=== PATIENT | female | born 1940 | race Caucasian/White ===

== ENCOUNTER 2017-06-02 09:07 | Day surgery (SDC) | payer MEDICARE ==
--- NOTE | 2017-06-02 06:30 | History and Physical Report ---
DATE: 06/02/17. CHIEF COMPLAINT AND HISTORY OF CHIEF COMPLAINT: This patient presents with a multiple-level fusion of the lumbar and thoracic spine for rotoscoliosis. The pain pattern is a combination of back and leg; the leg is the primary component. Due to the failure of all therapies, she presents today for an implanted spinal catheter infusion trial with hydromorphone. PAST MEDICAL HISTORY: Hypertension. PAST SURGICAL HISTORY: Multiple lumbar and thoracic fusions. MEDICATIONS ON ADMISSION: To be provided. ALLERGIES: Biaxin and Compazine. SOCIAL HISTORY: Caffeine. FAMILY HISTORY: Diabetes, coronary artery disease, hypertension, cancer. REVIEW OF SYSTEMS: The patient is appropriate and in no acute distress. The remainder of the systems review shows glasses, stable seizure disorder, blood pressure problems, gastritis, degenerative arthritis. PHYSICAL EXAMINATION: General: Height is 5 feet, 3 inches. Weight is 160 pounds. Vital Signs: Not available. HEENT: Within normal limits. Lungs: Clear. Heart: Regular rate and rhythm. Abdomen: Nontender. Musculoskeletal: Examination of the musculoskeletal system shows diffuse tenderness throughout the thoracic and lumbar spine adjacent to an extensive laminectomy scar. Range of motion is limited. The sensory mai are intact. Neurologic: Cranial nerves are intact. IMPRESSION: 1. POSTLUMBAR LAMINECTOMY SYNDROME, ICD-10 CODE M96.1. 2. LUMBAR RADICULITIS, ICD-10 CODE M54.16 AND M54.17. PLAN: The patient is here for an implanted spinal infusion trial with hydromorphone. The patient understands the implanted catheter technique, the risks, and the potential side effects including spinal cord injury, nerve root injury, paralysis, and spinal headache. Because of the extensive hardware, it is unlikely that a blood patch will be performed or even could be performed. The risk of spinal headache is significant. Conservative therapy will be used. She will be kept overnight in an attempt to help minimize this incident. All of her questions have been answered and reviewed. JASON WHITEHEAD D.O. Date & Time JOB NUMBER: [id number] cc: Neda Brooke
[~2017-06-02 09:07] MED LIST: ACETAMINOPHEN 1,000 MG/100 ML BTL IV ONE; CEFAZOLIN 2 Gram 2 GM/50 ML BAG IVPB ONE; FAMOTIDINE 20MG TABLET PO ONE; HYDROMORPHONE PF 2MG/ML AMP 0.004 MG in 0.9 % SODIUM CHLORIDE 10ML VIA 0.998 ML IV ONE; HYDROMORPHONE PF 2MG/ML AMP 2 MG in 0.9 % SODIUM CHLORIDE 500ML 499 ML IV ONE; MECLIZINE 25 MG TABLET PO ONE; METOCLOPRAMIDE 10 MG TABLET PO ONE
[2017-06-02] MEDS ORDERED: AL HYDROX/MAG HYDROX 30ML UD PO PRN (13:19)
[2017-06-02] MEDS ORDERED: HYDROCODONE/APAP 7.5/325MG TABLET PO PRN ×2 (13:19)
[2017-06-02] MEDS ORDERED: ACETAMINOPHEN 325 MG TAB PO PRN ×2 (13:19)
[2017-06-02] MEDS ORDERED: OXYCODONE/APAP 10MG-325MG TABLET PO PRN (13:19)
[2017-06-02] MEDS ORDERED: HYDROMORPHONE HCL 2 MG/ML VIAL IM PRN (13:19)
[2017-06-02] MEDS ORDERED: METOCLOPRAMIDE HCL 10 MG/2 ML VIAL IVP PRN (13:19)
[2017-06-02] MEDS ORDERED: METOCLOPRAMIDE 10 MG TABLET PO PRN (13:19)
[2017-06-02] MEDS ORDERED: DIPHENHYDRAMINE HCL IV 50 MG/ML VIAL IVP PRN ×2 (13:19)
[2017-06-02] MEDS ORDERED: NALOXONE 0.4 MG/1 ML VIAL IVP PRN (13:19)
[2017-06-02] MEDS ORDERED: SENNOSIDES/DOCUSATE SODIUM UD CAPSULE PO PRN ×2 (13:19)
[2017-06-02] MEDS ORDERED: DIPHENHYDRAMINE HCL 25 MG CAPSULE PO PRN ×2 (13:19)
[2017-06-02] MEDS ORDERED: TEMAZEPAM 15 MG CAPSULE PO PRN ×2 (13:19)
[2017-06-02] MEDS ORDERED: HYDROMORPHONE HCL 1 MG/ML CPJ IM PRN (13:19)
[2017-06-02] MEDS ORDERED: PANTOPRAZOLE SODIUM 40 MG TABLET PO PRN (13:21)
[2017-06-02] MEDS ORDERED: FUROSEMIDE 20 MG TABLET PO PRN (13:22)
[2017-06-02] MEDS ORDERED: BUPIVACAINE 0.5% W/EPI MPF 30 ML VIAL IVP ONE (13:54)
[2017-06-02] MEDS ORDERED: CEFAZOLIN 1G VIAL IM ONE (13:54)
[2017-06-02] MEDS ORDERED: LIDOCAINE 1% W/EPI 1:200,000 MPF 30ML SQ ONE (13:54)
[2017-06-02] MEDS ORDERED: *PACU ONLY* KETAMINE HCL 10 MG/ML (20ML) VIAL IV ONE (16:00)
[2017-06-02] MEDS ORDERED: PROPOFOL 10 MG/ML VIAL IV ONE (16:00)
[2017-06-02] MEDS ORDERED: MIDAZOLAM HCL 2MG/2ML VIAL IV ONE (16:00)
[2017-06-02] MEDS ORDERED: LIDOCAINE 2% MDV (20MG/ML) 20ML VIAL IV ONE (16:00)
[2017-06-02] MEDS ORDERED: EPHEDRINE SULFATE 50 MG/ML ML IV ONE (16:00)
[2017-06-02] MEDS: RINGERS SOLUTION,LACTATED 1,000 ML IV SCH ×2 (16:21→22:14)
[2017-06-02] MEDS: OXYCODONE/APAP 10MG-325MG TABLET PO PRN ×2 (16:21→20:21)
--- NOTE | 2017-06-02 16:21 | Operative Note - Ferro ---
DATE OF SURGERY: 06/02/17 PREOPERATIVE DIAGNOSES: 1. POST LUMBAR LAMINECTOMY SYNDROME, ICD-10 CODE = M96.1 2. LUMBAR RADICULITIS, ICD-10 CODE = M54.16 AND M54.17. OPERATION: 1. FLUOROSCOPICALLY-GUIDED ACCESS SPINAL SPACE AT L3/4. PLACEMENT OF THIN- WALLED SPINAL CATHETER T12. 2. DIAGNOSTIC MYELOGRAPHY WITH RADIOLOGIC SUPERVISION AND INTERPRETATION. 3. SPINAL OPIOID BOLUS HYDROMORPHONE 0.002 MG, SPINAL SPACE. 4. INCISION, SUBCUTANEOUS DISSECTION, AND ANCHORING OF SPINAL CATHETER TO SUPRASPINOUS FASCIA USING ANCHORING DEVICE AND NONABSORBABLE SUTURE. 5. INCISION, SUBCUTANEOUS DISSECTION, AND CREATION OF SUBCUTANEOUS POUCH AT RIGHT POSTERIOR GLUTEAL MARGIN ULTIMATELY SITE FOR PUMP PICKED BY PATIENT. 6. TUNNELING BETWEEN MIDLINE POUCH TO POSTERIOR GLUTEAL POUCH BY WAY OF TUNNELING TOOL EXTENDING SPINAL CATHETER INTO POSTERIOR POUCH. 7. RESECT INTERFACE SPINAL CATHETER WITH SECOND CATHETER COMPONENT BY WAY OF CONNECTOR. 8. TUNNELING OF SECONDARY CATHETER COMPONENT SUPERIOR 6 CM EXITING SKIN. 9. INTERFACE EXTERNAL CATHETER TO EXTERNAL PUMP SET TO DELIVER HYDROMORPHONE AT 0.04 MG A DAY. 10. NO EPIDURAL BLOOD PATCH BECAUSE OF EXTENSIVE FUSION AND SCAR TISSUE. APPROPRIATE DRESSINGS PLACED SECURING CATHETER AND ALL CONNECTIONS UNDER STERILE DRESSING. SURGEON: JASON WHITEHEAD D.O. ANESTHESIA: LOCAL SEDATION. ANESTHESIA PROVIDER: LEANDRO CHAVEZ CRNA INDICATION: This patient presents with a history spinal infusion. Diagnostics show pedicle screw and heron fusion from T8 through L5/S1 with bilateral fusion of SI joints. Due to the failure of all therapies, she is here for an intraspinal opioid infusion trial to determine if the implantation of a permanent system can be of any value in pain control. PROCEDURE: Intravenous line, vital sign monitoring, IV sedation, prepped, draped, sterile technique. Under imaging, the spinal interspace in the middle of the fusion, a decompression laminectomy at L3/4 was marked. No visualization of acceptable interspaces in the area of the fusion from T8 down. Using slow and meticulous advancing of the needle, using an angle approaching the spinal space as low as possible, tip of the needle at the spinous process, AP and lateral imaging was used until the needle was placed into what appeared to be the spinal space. No CSF was noted. With needle placement appropriate for the spinal space despite no CSF, the catheter was advanced and positioned under imaging easily consistent with spinal placement to T12. Contrast 0.5 mL was injected through the catheter. Myelogram characteristics noted confirming spinal placement. The needle was removed and incision made, and subcutaneous dissection was then conducted to anchor the catheter the supraspinous fascia. A pursestring suture had been placed around the catheter to limit any CSF loss. A bolus of 1 mL Hydromorphone 0.002 mg was given into the spinal space as a bolus. Once the catheter was anchored to the supraspinous fascia using an anchoring device and nonabsorbable suture, the catheter was clamped to limit any further CSF. At the right posterior gluteal margin, site picked by the patient, skin infiltrated, incision made, and subcutaneous dissection was conducted to form a pouch of suitable size and depth ultimately for the placement of the pump itself. A tunneling tool was used to carry the spinal catheter into the posterior pouch and then the spinal catheter was resected and interfaced with the second catheter component by way of a connector. The secondary catheter component was then tunneled superior 6 cm from this pouch exiting the skin. The externalized catheter was then interfaced with an external pump set to deliver Hydromorphone at 0.04 mg a day. The catheter interface was then placed subcutaneously in the posterior gluteal pouch. The midline incision was closed with Vicryl, fascial, and subcuticular. Dermabond closure. The posterior pouch was then closed with nylon. Dressings were placed securing the catheter and all connections under sterile dressing. Because of the extensive spinal surgery, no epidural blood patch will be attempted. She was transported to the Recovery Room. At no point did she demonstrate fasciculations and no point during needle placement did she show any indications of trouble or difficulty. Although sedated, she was responsive sufficiently to indicate pain. She did not. The procedure went without difficulty. In the Recovery Room, she seemed appropriate. We will monitor. She will stay flat, slowly elevated after four hours, be kept overnight for observation, and in the morning be discharged. DISCHARGE INSTRUCTIONS: 1. The sites will remain clean and dry. No showering or bathing in any way that might disrupt dressings. If it happens, contact the clinic. 2. Standard medications including Levaquin, the antibiotic, 500 mg once a day for 14 days. 3. Spinal opioid side-effects including respiratory depression, nausea, vomiting , constipation, urinary retention, light headedness or rash have all been discussed and reviewed. If any of these should happen, she should contact the clinic immediately or go to a local Emergency Room. Her and her are both instructed on how to turn off the external infusion device. All other instructions provided, numbers to contact, problems given. She will be discharged in the morning. cc: Dr. Washington JOB NUMBER: [id number] MTDD
[2017-06-02] MEDS: CEFAZOLIN 2 Gram 2 GM/50 ML BAG IVPB SCH (19:26)
[2017-06-02] MEDS ORDERED: GABAPENTIN 300 MG CAPSULE PO SCH (22:00)
[2017-06-02] MEDS ORDERED: FENTANYL 50MCG PATCH TD SCH (22:00)
[2017-06-02] MEDS ORDERED: ATENOLOL 50 MG TABLET PO SCH (22:00)
[2017-06-02] MEDS ORDERED: SIMVASTATIN 20 MG TABLET PO SCH (22:00)
[2017-06-02] MEDS ORDERED: EZETIMIBE 10 MG TABLET PO SCH (22:00)
[2017-06-02] MEDS ORDERED: TRAZODONE 50 MG TABLET PO SCH (22:00)
[2017-06-02] MEDS: HYDRALAZINE HCL 25 MG TABLET PO SCH (22:08)
[2017-06-03] MEDS: OXYCODONE/APAP 10MG-325MG TABLET PO PRN ×3 (00:58→09:26)
[2017-06-03] MEDS: RINGERS SOLUTION,LACTATED 1,000 ML IV SCH ×2 (01:00→05:29)
[2017-06-03] MEDS: CEFAZOLIN 2 Gram 2 GM/50 ML BAG IVPB SCH ×2 (02:30→10:12)
[2017-06-03] MEDS: HYDRALAZINE HCL 25 MG TABLET PO SCH (09:25)
[2017-06-03] MEDS ORDERED: LOSARTAN POTASSIUM 100 MG TABLET PO SCH (10:00)
[2017-06-03] MEDS ORDERED: AMIODARONE HCL 200 MG TABLET PO SCH (10:00)
[2017-06-03] MEDS ORDERED: FUROSEMIDE 20 MG TABLET PO SCH (10:00)
[2017-06-03] MEDS ORDERED: POTASSIUM CHLORIDE 10 MEQ TAB PO SCH (10:00)
[2017-06-03] MEDS ORDERED: DILTIAZEM HCL 120 MG ER CAPSULE PO SCH (10:00)
--- NOTE | 2017-06-03 13:25 | RADIOLOGY REPORT ---
EXAM: AP THORACOLUMBAR SPINE HISTORY: PAIN PUMP TRIAL. TECHNIQUE: AP view of the thoracolumbar spine was obtained. Comparison: None. FINDINGS: Posterior fusion rods are identified extending from the T10 level to the iliac bones. Pain pump catheter tubing is difficult to delineate although the radiodense tip may be at the inferior T12 level. IMPRESSION: POSTOPERATIVE CHANGE OF THE THORACOLUMBAR SPINE. THE PAIN PUMP CATHETER TIP APPEARS TO OVERLIE THE INFERIOR T12 LEVEL. JOB NUMBER: [id number] [facility]
== END 2017-06-03 11:30 | disposition home or self-care (01) ==
LOC: SUR 09:07 → MEDSURG 13:37 → SUR 06-03 11:30
PROVIDERS: ATTEND Pain Medicine Interventional Pain Medicine
DX: M96.1 Postlaminectomy syndrome, not elsewhere classified (principal); M54.16 Radiculopathy, lumbar region; M54.17 Radiculopathy, lumbosacral region; I48.2 Chronic atrial fibrillation; Z79.01 Long term (current) use of anticoagulants; I10 Essential (primary) hypertension; E78.00 Pure hypercholesterolemia, unspecified
CPT/HCPCS: 62350; 00630; 72020; 94760; Q9967; J3490; J0690 ×2; J1170; J7040; J7120

== ENCOUNTER 2017-06-16 08:58 | Day surgery (SDC) | payer MEDICARE ==
--- NOTE | 2017-06-16 07:05 | History and Physical Report ---
DATE: 06/16/2107. CHIEF COMPLAINT AND HISTORY OF CHIEF COMPLAINT: This is a patient with a history of multiple spine surgeries. She has an implanted spinal catheter infusion trial with hydromorphone ongoing. She has had greater than 75 percent pain control throughout this period of time. Due to the failure of all of the other therapies and the success of the trial, the patient presents today for implantation of a permanent system. She is from the state [facility] and is here for the trial. Once this has been implanted she will return to [place]. PAST MEDICAL HISTORY: Hypertension. PAST SURGICAL HISTORY: Multiple surgeries on the lumbar and thoracic spine. MEDICATIONS ON ADMISSION: To be provided. ALLERGIES: Biaxin, Compazine. SOCIAL HISTORY: Caffeine. FAMILY HISTORY: Diabetes, coronary artery disease, hypertension, cancer. REVIEW OF SYSTEMS: The patient seems appropriate and in no acute distress. The remainder of the systems review shows stable seizure disorder, blood pressure problems, gastritis, degenerative arthritis. PHYSICAL EXAMINATION: General: Height is 5 feet, 3 inches. Weight is 160 pounds. Vital Signs: None available. HEENT: Within normal limits. Lungs: Clear. Heart: Regular rate and rhythm. Abdomen: Nontender. Musculoskeletal: Examination of the musculoskeletal system shows diffuse tenderness throughout the lumbar spine. The dressings for the implanted catheter trial are intact. The externalized catheter is interfaced to the external pump and is intact. The underlying pain pattern is back, hip, and leg. Sensory ami are intact. Neurologic: Cranial nerves are intact. IMPRESSION: 1. POSTLUMBAR LAMINECTOMY SYNDROME, ICD-10 CODE M96.1. 2. LUMBAR RADICULITIS, ICD-10 CODE M54.16 AND M54.17. 3. IMPLANTED SPINAL CATHETER INFUSION TRIAL WITH HYDROMORPHONE. PLAN: At this point the patient is doing quite well and wants an implant. The potential risks, side effects, and complications including spinal cord trauma and nerve root injury have been discussed and reviewed. A spinal headache is possible. Dural blood patch may be performed. The procedure will be considered outpatient. An overnight stay will be evaluated. JASON WHITEHEAD D.O. Date & Time JOB NUMBER: [id number] cc: Neda Brooke
[~2017-06-16 08:58] MED LIST changes: +HYDROMORPHONE HCL 0.016 GM in 0.9 % SODIUM CHLORIDE 10ML VIA 20 ML IV ONE; +HYDROMORPHONE HCL/PF 0.002 MG in 0.9 % SODIUM CHLORIDE 10ML VIA 0.998 ML IVP ONE; -HYDROMORPHONE PF 2MG/ML AMP 0.004 MG in 0.9 % SODIUM CHLORIDE 10ML VIA 0.998 ML IV ONE; -HYDROMORPHONE PF 2MG/ML AMP 2 MG in 0.9 % SODIUM CHLORIDE 500ML 499 ML IV ONE
[2017-06-16] MEDS ORDERED: HYDROCODONE/APAP 7.5/325MG TABLET PO PRN ×2 (12:57)
[2017-06-16] MEDS ORDERED: OXYCODONE/APAP 10MG-325MG TABLET PO PRN ×2 (12:57)
[2017-06-16] MEDS ORDERED: DIPHENHYDRAMINE HCL 25 MG CAPSULE PO PRN ×2 (12:57)
[2017-06-16] MEDS ORDERED: DIPHENHYDRAMINE HCL IV 50 MG/ML VIAL IVP PRN ×2 (12:57)
[2017-06-16] MEDS ORDERED: TEMAZEPAM 15 MG CAPSULE PO PRN ×2 (12:57)
[2017-06-16] MEDS ORDERED: RINGERS SOLUTION,LACTATED 1,000 ML IV SCH (12:57)
[2017-06-16] MEDS ORDERED: SENNOSIDES/DOCUSATE SODIUM UD CAPSULE PO PRN ×2 (12:57)
[2017-06-16] MEDS ORDERED: ACETAMINOPHEN 325 MG TAB PO PRN ×2 (12:57)
[2017-06-16] MEDS ORDERED: AL HYDROX/MAG HYDROX 30ML UD PO PRN (12:57)
[2017-06-16] MEDS ORDERED: METOCLOPRAMIDE HCL 10 MG/2 ML VIAL IVP PRN (12:57)
[2017-06-16] MEDS ORDERED: METOCLOPRAMIDE 10 MG TABLET PO PRN (12:57)
[2017-06-16] MEDS ORDERED: HYDROMORPHONE HCL 1 MG/ML CPJ IM PRN (12:57)
[2017-06-16] MEDS ORDERED: HYDROMORPHONE HCL 2 MG/ML VIAL IM PRN (12:57)
[2017-06-16] MEDS ORDERED: FENTANYL PF 100MCG/2ML VIAL IV ONE (14:00)
[2017-06-16] MEDS ORDERED: PROPOFOL 10 MG/ML VIAL IV ONE (14:00)
[2017-06-16] MEDS ORDERED: LIDOCAINE 1% W/EPI 1:200,000 MPF 30ML SQ ONE (14:00)
[2017-06-16] MEDS ORDERED: MIDAZOLAM HCL 2MG/2ML VIAL IV ONE (14:00)
[2017-06-16] MEDS ORDERED: BUPIVACAINE 0.5% W/EPI MPF 30 ML VIAL IVP ONE (14:00)
[2017-06-16] MEDS ORDERED: ONDANSETRON HCL IV 4 MG/2 ML VIAL IVP ONE (14:00)
[2017-06-16] MEDS ORDERED: CEFAZOLIN 1G VIAL IM ONE (14:00)
[2017-06-16] MEDS ORDERED: LIDOCAINE 2% MDV (20MG/ML) 20ML VIAL IV ONE (14:00)
[2017-06-16] MEDS ORDERED: CEFAZOLIN 2 Gram 2 GM/50 ML BAG IVPB SCH (17:45)
--- NOTE | 2017-06-16 23:11 | Operative Note - Ferro ---
DATE OF SURGERY: 06/16/17 PREOPERATIVE DIAGNOSES: 1. POST LUMBAR LAMINECTOMY SYNDROME, ICD-10 CODE = M96.1. 2. LUMBAR RADICULITIS, ICE-10 CODE = M54.16 AND M54.17. 3. IMPLANTED SPINAL CATHETER INFUSION TRIAL HYDROMORPHONE. OPERATION: 1. INCISION AND SUBCUTANEOUS DISSECTION AND REMOVAL OF EXTERNALIZED CATHETER, WHICH WAS INTERFACED TO INTERNAL CATHETER BY WAY OF CONNECTOR. 2. INCISION, SUBCUTANEOUS DISSECTION, AND CREATION OF SUBCUTANEOUS POUCH AT RIGHT POSTERIOR SUPERIOR GLUTEAL MARGIN WITH PLACEMENT OF PUMP IDENTIFIED A MEDTRONIC 20 ML PROGRAMMABLE 3. REVISION AND RESECTION OF INDWELLING PERMANENT SPINAL CATHETER WITH SECOND CATHETER COMPONENT BY WAY OF CONNECTOR TO INTERFACE INTERNAL CATHETER WITH PUMP REQUIRING A SECOND CATHETER COMPONENT. 4. INTERFACE RESECTED CATHETER TO PUMP, PLACEMENT OF PUMP INTO POUCH SECURING TO POSTERIOR FASCIA USING NONABSORBABLE SUTURE. THREE POINTS PUMP EYELETS. 5. PLACEMENT OF #24 GAUGE HERNANDEZ NEEDLE INTO ACCESS PORT PROGRAMMABLE PUMP CLEARING SPINAL CATHETER OF OPIOID AND CSF MIXTURE. 6. INJECTING CONTRAST THROUGH ACCESS PORT, RESULTING MYELOGRAM WITH RADIOLOGIC SUPERVISION AND INTERPRETATION SHOWING CATHETER FLOW THROUGH THE INTERNAL PUMP APPROPRIATE, SHOWING CATHETER CONNECTION TO PUMP, NO KINKS, BREAKS, OR LEAKS, SHOWING TIP OF THE CATHETER MIDLINE T12 WITH APPROPRIATE MYELOGRAM FLOW CHARACTERISTICS IDENTIFIED, CONFIRMING FUNCTIONALITY OF CATHETER AND ALL COMPONENTS. 7. CLOSURE OF INCISION WITH VICRYL FOR FASCIA, RUNNING SUBCUTICULAR VICRYL FOR SKIN. DERMABOND CLOSURE APPROXIMATING WOUND EDGES. 8. PROGRAMMING OF PUMP TO DELIVER BY CONTINUOUS INFUSION HYDROMORPHONE AT 0.2 MG PER DAY. SURGEON: JASON WHITEHEAD D.O. ANESTHESIA: LOCAL SEDATION. ANESTHESIA PROVIDER: HANS TIM CRNA INDICATIONS: This patient presents with a history of a postlaminectomy radiculitis. Due to the failure of all therapy, an implanted spinal catheter infusion trial with Hydromorphone was conducted with 75+ percent pain control and functionality improvement. Due to the failure of all therapy, she is here for implantation of a permanent system. The implant will require removing an externalized catheter, which was interfaced subcutaneously to the permanent indwelling catheter. Once this externalized catheter component is removed, a new catheter component will need to be interfaced to the indwelling catheter for a direct connection to the permanent pump. The pump will be placed and the infusion started. PROCEDURE: Intravenous line, vital sign monitoring, IV sedation by Anesthesia. Patient positioned prone. Sterile prep, sterile technique. All the dressings removed. The external catheter was clamped, sterile prep, sterile technique, and under imaging. At the right posterior gluteal margin, a site picked by the patient for the actual pump placement, skin infiltrated, incision made, and subcutaneous dissection was conducted to form a pouch of suitable size and depth for the pump, identified as a Medtronic 20 mL programmable. Once the subcutaneous pouch was formed, the internal permanent spinal catheter component interfaced with the external catheter was identified. The catheter was clamped, cut, and the externalized portion was removed pulling away from the incision. A new catheter secondary component was then placed onto the field and then interfaced to the indwelling permanent catheter. This second catheter component would be the segment to actually interface to the pump. The pump placed onto the field was interfaced with the resected catheter. Antibiotic irrigation and Bovie hemostasis. The pump was placed into the pouch and secured to the posterior fascia after the pouch was formed suitably and antibiotic irrigation performed. The pump was secured to the posterior fascia at three points using a nonabsorbable suture and the pump eyelets. A #24 gauge Hernandez needle was inserted into the access port and 1 mL of catheter contents was cleared and aspirated clearing the catheter opioid and CSF mixture. Contrast was then injected through the access port. The resulting myelogram with radiologic supervision and interpretation showed contrast moving through the internal network of the device. No blocks or obstructions. Contrast then moves to the pump catheter connection. There were no kinks, bends, or leaks. The tip of the catheter at T12 and the spinal space was imaged. Contrast flow characteristics were noted, myelogram flow appropriate and confirming all appropriate connections and flow characteristics concluding normal catheter function. With the pump secured in the pouch, the incision was then closed with Vicryl for fascia and running subcuticular Vicryl for skin. Dermabond closure was used to seal the incision, water impermeable, and approximate the edges. The pump was then programmed to deliver by continuous infusion Hydromorphone at 0.2 mg a day. She was transported to the Recovery Room stable showing no side-effects from the procedure or the sedation. When fully awake and alert, complex programming was then performed, as per above, confirming all the settings. She will be monitored until stable, kept overnight for evaluation and monitoring, and then discharged in the morning. DISCHARGE INSTRUCTIONS: 1. THE SITE IS TO REMAIN CLEAN AND DRY. NO SHOWING OR BATHING IN ANY WAY THAT WOULD DISRUPT DRESSINGS. IF IT HAPPENS, CONTACT THE CLINIC. THE DERMABOND WILL ALLOW SHOWERING. SHE STILL SHOULD NOT SCRUB THE DRESSING. 2. STANDARD MEDICATIONS RESUMED. SHE WILL CONTINUE HER KEFLEX 500 MG FOUR TIMES A DAY FOR ANOTHER SEVEN DAYS AND THEN STOP. 3. THE OFFICE WILL CONTRACT THE PATIENT AT HOME. WE WILL SEE HER IN 5 TO 7 DAYS TO EVALUATE THE SITES. 4. SPINAL OPIOID SIDE EFFECTS INCLUDING RESPIRATORY DEPRESSION, NAUSEA, VOMITING, CONSTIPATION, URINARY RETENTION, LIGHTHEADEDNESS, OR RASH HAVE ALL BEEN DISCUSSED AND REVIEWED. SHOULD ANY SIDE EFFECT HAPPEN, SHE IS TO CONTACT THE CLINIC OR THE LOCAL EMERGENCY ROOM. ALL OTHER INSTRUCTIONS PROVIDED, NUMBERS TO CONTACT IF PROBLEMS GIVEN. SHE WILL BE THEN DISCHARGED. cc: Primary JOB NUMBER: [id number] MTDD
--- NOTE | 2017-06-17 09:30 | RADIOLOGY REPORT ---
EXAM: AP LUMBAR SPINE HISTORY: PAIN PUMP IMPLANT. TECHNIQUE: AP view of the lumbar spine was obtained. Comparison: Lumbar spine 06/02/17. FINDINGS: There may be a small amount of intrathecal contrast overlying the lower lumbar spine. Pain pump in place extending cephalad to the approximate lower T12 level. Posterior fusion rods from the T10 level to the sacrum and iliac bones. IMPRESSION: POSTOPERATIVE CHANGE OF THE LUMBAR SPINE. PAIN PUMP CATHETER EXTENDS TO THE INFERIOR T12 LEVEL. JOB NUMBER: [id number] MTDD
== END 2017-06-16 13:30 | disposition home or self-care (01) ==
LOC: SUR 08:58 → MEDSURG 11:14 → SUR 13:30
PROVIDERS: ATTEND Pain Medicine Interventional Pain Medicine
DX: M96.1 Postlaminectomy syndrome, not elsewhere classified (principal); M54.16 Radiculopathy, lumbar region; M54.17 Radiculopathy, lumbosacral region; I48.91 Unspecified atrial fibrillation; Z79.01 Long term (current) use of anticoagulants; E78.00 Pure hypercholesterolemia, unspecified; I10 Essential (primary) hypertension; J84.9 Interstitial pulmonary disease, unspecified; Z86.73 Personal history of transient ischemic attack (TIA), and cerebral infarction without residual deficits
CPT/HCPCS: 62367; 72020; C1755; J0690; J1170; J2405